=== PATIENT | male | born 1935 | race Caucasian/White ===

== ENCOUNTER 2024-05-04 09:33 | Emergency (ER) | payer OTHER, BC ==
--- NOTE | 2024-05-04 10:38 | RAD REPORT ---
EXAMINATION: CT PELVIS WITHOUT CONTRAST CLINICAL INDICATION: Male, 89 years old. left lower lumbar/sacral pain s/p fall TECHNIQUE: CT pelvis was performed, without IV contrast, as per department protocol. Axial, sagittal and coronal reconstructions were obtained. One or more of the following dose reduction techniques were used: Automated exposure control, adjustment of the mA and/or kV according to patient size, and/ or iterative reconstruction. Unless otherwise specified, incidental findings do not require dedicated imaging follow-up. COMPARISON: No prior exam. FINDINGS: The lack of intravenous contrast limits the sensitivity of this exam for evaluation of solid visceral organs, vascular structures, and retroperitoneum. MUSCULOSKELETAL: No acute fractures or suspicious periosteal reaction. Mixed lucent and sclerotic les ion within the left iliac bone measuring up to 2.8 cm, extending to a small cortical defect along the posterior aspect of the SI joint, this could be of degenerative nature or represent a benign bone tumor such as a chondroma. No lytic or suspicious focal lesions otherwise. Transpedicular fusion hardware with interbody spacer at L4-5, with sequelae of prior bilateral per ctomies. Marked disc height loss at L5-S1. Broad-based posterior disc bulges at L3-4 and L5-S1, with ligamentum flavum buckling and facet arthropathy contributing to variable degrees of neural fora susan narrowing most pronounced at L5-S1 right more than left. Apparent effacement of the central canal, probably moderate, at L3-4. Bilateral hip joint degenerative changes. URINARY SYSTEM: No abnormalities of the included kidneys and ureters. Urinary bladder is unremarkable . Marked prostatomegaly. GASTROINTESTINAL TRACT: Included small bowel is normal in caliber. No wall thickening or bowel inflam matory changes. Extensive distal descending and proximal sigmoid colon diverticulosis without evidence of acute diverticulitis. LYMPH NODES: No lymphadenopathy. ABDOMINAL AORTA AND OTHER VESSELS: Dense atherosclerotic calcifications ADDITIONAL FINDINGS: None. IMPRESSION: No acute abnormalities of the bony pelvis. Evaluation limited by lack of IV contrast. 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 If there is concern for radiculopathy, additional evaluation by lumbar spine MRI may be helpful. Other incidental findings as above.
--- NOTE | 2024-05-04 11:04 | EDPHYS ---
Physician Documentation [facility] Name: Derick Griffith Age: 89 yrs Sex: Male : 1935 Arrival Date: 05/04/2024 Time: 09:33 Bed 14 Private MD: ED Physician Christiano Bailey HPI: 05/04 09:55 This 89 yrs old Male presents to ER via Ambulatory with complaints of Low Back Pain. rn 09:55 The patient presents with pain that is acute. The symptoms are located in the low back, rn left low back. Onset: The symptoms/episode began/occurred 2 week(s) ago. Modifying factors: The patient symptoms are alleviated by nothing, the patient symptoms are aggravated by walking. Associated signs and symptoms: Pertinent negatives: abdominal pain, chest pain, fever, hematuria, incontinence, nausea, numbness, tingling, urinary retention, weakness. Severity of symptoms: At their worst the symptoms were mild, in the emergency department the symptoms are unchanged. The patient has not experienced similar symptoms in the past. Patient reports fall 2 weeks ago while fishing, landed on left lower back/hip. Reports did not hurt initially but with time has been hurting him. Hurts more to ambulate. No pain when laying down or sitting. Was actually able to fish yesterday without pain. Reports pain to the left lower back. No hip pain or trouble walking on the hip itself. No radiation. No weakness or numbness.. Historical: - Allergies: 09:51 No Known Allergies; hb - PSHx: 09:51 Back; Left Knee Replacement; hb - Immunization history:: Adult Immunizations up to date. - Infectious Disease History:: Denies. - Social history:: Smoking status: Patient denies any tobacco usage or history of. - Family history:: not pertinent. - Hospitalizations: : No recent hospitalization is reported. ROS: 09:56 Constitutional: Negative for fever, chills, and weight loss, Cardiovascular: Negative rn for chest pain, palpitations, and edema, Respiratory: Negative for shortness of breath, cough, wheezing, and pleuritic chest pain, Abdomen/GI: Negative for abdominal pain, nausea, vomiting, diarrhea, and constipation, Back: Positive for left lower back pain MS/Extremity: Negative for injury and deformity, Neuro: Negative for headache, weakness, numbness, tingling, and seizure, Exam: 09:56 Constitutional: This is a well developed, well nourished patient who is awake, alert, rn and in no acute distress. Ambulatory to room without assistance Back: No midline spinal tenderness. Mild tenderness left lower paraspinal region. No swelling or ecchymosis MS/ Extremity: Pulses equal, no cyanosis. Neurovascular intact. Full, normal range of motion. Equal circumference. No tenderness at the hip or painful range of motion of the hip Neuro: Awake and alert, GCS 15 Vital Signs: 09:50 BP 122 / 86; Pulse 64; Resp 16; Temp 97.5; Pulse Ox 100% on R/A; Pain 8/10; hb 11:38 BP 166 / 75; Pulse 58; Resp 16; Pulse Ox 96% ; cm10 09:50 Pain Scale: Adult hb MDM: 09:39 Medical Screening Exam initiated rn 11:00 Differential diagnosis: fracture, contusion, Herniated disc. Differential diagnosis: rn strain. Data reviewed: vital signs, nurses notes, radiologic studies, CT scan, and as a result, I will discharge patient. Counseling: I had a detailed discussion with the patient and/or guardian regarding the historical points, exam findings, and any diagnostic results supporting the discharge/admit diagnosis, radiology results, the need for outpatient follow up, to return to the emergency department if symptoms worsen or persist or if there are any questions or concerns that arise at home. Special discussion: I discussed with the patient/guardian in detail that at this point there is no indication for admission to the hospital. It is understood, however, that if the symptoms persist or worsen the patient needs to return immediately for re-evaluation. ED course: CT pelvis without acute findings. Does show a lesion along the iliac and sacral region where patient is hurting but not secondary to trauma and this was from trauma. Patient has other nonacute findings of the spine and evidence of hardware from previous surgery. Patient denies any weakness or paresthesias at this time. Will discharge home with anti-inflammatory medication and will follow-up regarding CT findings including lesion.. 05/04 09:52 Order name: CT Pelvis wo Cont; Complete Time: 10:53 rn Administered Medications: 11:36 Drug: Ketorolac IM 15 mg IM once Route: IM; Site: left gluteus; cm10 11:40 Follow up: Response: No adverse reaction cm10 11:37 Drug: Dexamethasone IM 10 mg IM once Route: IM; Site: right gluteus; cm10 11:40 Follow up: Response: No adverse reaction cm10 Disposition Summary: 05/04/24 11:03 Discharge Ordered Notes: Location: Home rn Problem: new rn Symptoms: have improved rn Condition: Stable rn Diagnosis - Contusion of lower back and pelvis rn Followup: rn - With: Private Physician - When: As needed - Reason: Recheck today's complaints, Re-evaluation by your physician Discharge Instructions: - Discharge Summary Sheet rn - Contusion rn Forms: - Medication Reconciliation Form rn - Antibiotic furniture shampooer - Prescription Opioid Use rn - Patient Portal Instructions rn - Leadership Thank You Letter rn Prescriptions: - Diclofenac Sodium 75 mg Oral tablet, delayed release (enteric coated) - take 1 tablet ORAL route 2 times per day As needed; 10 tablet; Refills: 0, rn Product Selection Permitted - Medrol (Colten) 4 mg Oral Tablets, Dose Pack - take 1 tablet ORAL route as directed - follow package instructions; 1 packet; rn Refills: 0, Product Selection Permitted Signatures: Dispatcher [employer] Christiano Rodriguez MD MD rn Baxter, Heather, RN RN hb Martinez, Clarissa RN RN cm10 Corrections: (The following items were deleted from the chart) 09:52 09:52 Pelvis Wo [id number].[email or web address].[email or web address] ordered. CATHRYN LOCKETT
--- NOTE | 2024-05-04 11:04 | ER ---
Nurse's Notes [facility] Name: Derick Griffith Age: 89 yrs Sex: Male : 1935 Arrival Date: 05/04/2024 Time: 09:33 Bed 14 Private MD: Diagnosis: Contusion of lower back and pelvis Presentation: 05/04 09:50 Chief complaint: Left low back pain after mechanical fall from standing 2 weeks ago. hb Coronavirus screen: At this time, the client does not indicate any symptoms associated with coronavirus-19. Ebola Screen: No symptoms or risks identified at this time. Initial Sepsis Screen: Does the patient meet any 2 criteria? No. Patient's initial sepsis screen is negative. Does the patient have a suspected source of infection? No. Patient's initial sepsis screen is negative. Risk Assessment: Do you want to hurt yourself or someone else? Patient reports no desire to harm self or others. Onset of symptoms was April 20, 2024. 09:50 Method Of Arrival: Ambulatory hb 09:50 Acuity: EMILIE 4 hb Historical: - Allergies: 09:51 No Known Allergies; hb - PSHx: 09:51 Back; Left Knee Replacement; hb - Immunization history:: Adult Immunizations up to date. - Infectious Disease History:: Denies. - Social history:: Smoking status: Patient denies any tobacco usage or history of. - Family history:: not pertinent. - Hospitalizations: : No recent hospitalization is reported. Screenin:40 [facility] ED Fall Risk Assessment (Adult) History of falling in the last 3 months, cm10 including since admission Yes- single mechanical fall (1 pt) Confusion or Disorientation No (0 pts) Intoxicated or Sedated No (0 pts) Impaired Gait No (0 pts) Mobility Assist Device Used Yes (1 pt) Altered Elimination No (0 pt) Score/Fall Risk Level 0 - 2 = Low Risk Oriented to surroundings, Maintained a safe environment, Hourly rounding (assess needs \T\ fall precautionary measures) done. Abuse screen: Denies threats or abuse. Denies injuries from another. Nutritional screening: No deficits noted. Tuberculosis screening: No symptoms or risk factors identified. Assessment: 11:41 General: Appears in no apparent distress. comfortable, Behavior is calm, cooperative. cm10 Pain: Complains of pain in left low back. Neuro: No deficits noted. Level of Consciousness is awake, alert, obeys commands, Oriented to person, place, time, situation, Appropriate for age. Respiratory: No deficits noted. Airway is patent Respiratory effort is even, unlabored, Respiratory pattern is regular, symmetrical. Musculoskeletal: Reports pain in left low back. Vital Signs: 09:50 BP 122 / 86; Pulse 64; Resp 16; Temp 97.5; Pulse Ox 100% on R/A; Pain 8/10; hb 11:38 BP 166 / 75; Pulse 58; Resp 16; Pulse Ox 96% ; cm10 09:50 Pain Scale: Adult hb ED Course: 09:39 Patient arrived in ED. cj3 09:39 Christiano Bailey MD is Attending Physician. rn 09:51 Triage completed. 09:51 Arm band placed on. hb 10:09 CT Pelvis wo Cont In Process Unspecified. EDMS 10:14 Nuvia Velazquez, RN is Primary Nurse. cm10 11:41 Patient has correct armband on for positive identification. Provided Education on: cm10 Follow-up instructions. 11:41 No provider procedures requiring assistance completed. Patient did not have IV access cm10 during this emergency room visit. Administered Medications: 11:36 Drug: Ketorolac IM 15 mg IM once Route: IM; Site: left gluteus; cm10 11:40 Follow up: Response: No adverse reaction cm10 11:37 Drug: Dexamethasone IM 10 mg IM once Route: IM; Site: right gluteus; cm10 11:40 Follow up: Response: No adverse reaction cm10 Medication: 11:40 VIS not applicable for this client. cm10 Outcome: 11:03 Discharge ordered by . rn 11:41 Discharged to home ambulatory, cm10 11:41 Condition: good 11:41 Discharge instructions given to patient, Instructed on discharge instructions, follow up and referral plans. medication usage, Demonstrated understanding of instructions, follow-up care, medications, Prescriptions given X 2, 11:42 Patient left the ED. cm10 Signatures: Dispatcher [employer] EDMS Christiano Bailey MD MD rn Baxter, Heather, RN RN Nuvia Velazquez, AURELIO RN cm10 Martita Floyd [email or web address]
[2024-05-04] MEDS ORDERED: dexAMETHasone 10 MG/ML VIAL ONE (11:22)
[2024-05-04] MEDS ORDERED: KETOROLAC 30 MG/ML INJ ONE (11:22)
[2024-05-04 11:54] VITALS: TEMP 97.5
[2024-05-04 11:56] VITALS: BP 166/75; O2SAT 96
== END 2024-05-04 11:42 | disposition home or self-care (01) ==
LOC: ER 09:33
DX: S30.0XXA Contusion of lower back and pelvis, initial encounter (principal); W18.30XA Fall on same level, unspecified, initial encounter; Z96.652 Presence of left artificial knee joint
CPT/HCPCS: 72192; 96372; 99284; J1100